=== PATIENT | female | born 1980 | race Caucasian/White ===

== ENCOUNTER 2016-11-17 14:07 | Emergency (ER) | payer MEDICAID ==
[2016-11-17 14:19] VITALS: TEMP 97.9
--- NOTE | 2016-11-17 15:03 | EDPHY ---
H & P Stated Complaint: MS exacerbation, sent by PCP. Time Seen by Provider: 11/17/16 15:01 HPI/ROS: CHIEF COMPLAINT: MS exacerbation HISTORY OF PRESENT ILLNESS: The patient is a 36 year old female with history of remitting relapsing multiple sclerosis, who was sent here by her neurologist, Wei FRANCOIS, for concern about possible MS exacerbation. On 11/14, the patient went to go get her bus pass from a place she has been multiple times, but was suddenly unable to remember how to get there. She felt disoriented and off balance. These symptoms lasted for a few hours. She continued to feel disoriented with lapses in memory the following day, 2 days ago. Yesterday she stayed home and just did housework. She noticed an increase in falls and states she usually falls due to weakness in her left leg. Today, she went to her neurologist because she felt she was "blacking out" again. She has noticed visual changes including double vision and headache for which she has been taking Maxalt. Patient additionally states she has felt chilled lately and notes intermittent diarrhea. She denies any urinary complaints. She has no history of cardiac issues. No fever. No chest pain, no shortness of breath, no vomiting. No cough or cold symptoms. No change in her medications recently. No head trauma. REVIEW OF SYSTEMS: Aside from elements discussed in the HPI, a comprehensive 10-point review of systems was reviewed and is negative. PAST MEDICAL HISTORY: RRMS, endometriosis, migraines, TBIs, PTSD/anxiety, Depression. SOCIAL HISTORY: Occasional alcohol. Uses a vape pen. VITAL SIGNS: Reviewed by me GENERAL: Well-developed, well-nourished, teary eyed, but resting comfortably in no respiratory distress. HEENT: Atraumatic. Eyes: No icterus, no injection. EOMI. JOSE. Mouth: moist mucous membranes. No erythema or lesions. Neck: supple with no adenopathy. LUNGS: Clear to auscultation bilaterally, no wheezes, rhonchi or rales. CARDIAC: Regular rate and rhythm, no rubs, murmurs or gallops. ABDOMEN: Soft, nontender, nondistended, bowel sounds normal. BACK: Mild left CVA tenderness. EXTREMITIES: No trauma. No edema. Range of motion is normal throughout. NEURO: Alert and oriented, grossly nonfocal. Slighty unsteady gait. SKIN: Warm and dry, no rash. PSYCHIATRIC: Normal mentation, no agitation. Portions of this note were transcribed by a regional medical director. I personally performed a history, physical exam, medical decision making, and confirmed accuracy of information the transcribed note. Source: Patient - Personal History LMP (Females 10-55): Now Current Tetanus Diphtheria and Acellular Pertussis (TDAP): Yes Tetanus Vaccine Date: 2010 - Medical/Surgical History Hx Asthma: No Hx Chronic Respiratory Disease: No Hx Diabetes: No Hx Cardiac Disease: No Hx Renal Disease: No Hx Cirrhosis: No Hx Alcoholism: No Hx HIV/AIDS: No Hx Splenectomy or Spleen Trauma: No Other PMH: RRMS, endometriosis, migraines, TBIs. PTSD/anxiety - Social History Smoking Status: Former smoker Constitutional: Initial Vital Signs Temperature (C) 36.6 C 11/17/16 14:14 Heart Rate 85 11/17/16 14:14 Respiratory Rate 16 11/17/16 14:14 Blood Pressure 117/74 11/17/16 14:14 O2 Sat (%) 98 11/17/16 14:14 O2 Delivery Mode Room Air Allergies/Adverse Reactions: amitriptyline [Amitriptyline] Allergy (Unknown, Verified 10/22/15 11:14) amoxicillin [Amoxicillin] Allergy (Unknown, Verified 10/22/15 11:14) ibuprofen Allergy (Verified 10/22/15 11:14) metoclopramide HCl [From Reglan] Allergy (Verified 10/22/15 11:14) Home Medications: Medication Instructions Recorded Tramadol HCl [Ultram Er] 100 mg PO QID PRN #20 tab 11/08/10 Flexeril 03/21/11 traMADol [Ultram 50 mg (*)] 1 - 2 tab PO Q8 PRN #24 tab 05/06/14 Pregabalin [LYRICA] 07/19/14 Rizatriptan Benzoate [Maxalt] 07/19/14 Diclofenac Sodium 11/29/15 Polymyxin B Sulfate/Tmp [Polytrim 1 drops EACHEYE Q4 7 Days 12/02/15 Opht Drops] Avonex 08/01/16 Flexeril 08/01/16 LORAZEPAM 08/01/16 LORazepam [Ativan (*)] 1 mg PO BID #10 tab 08/01/16 Maxalt 08/01/16 Neurontin 08/01/16 Zofran 08/01/16 traZODone 08/01/16 predniSONE 60 mg PO DAILY 5 Days 11/17/16 Medical Decision Making - Diagnostics Imaging: MRI scan of the brain was obtained. I viewed the images independently on the PACS system. I discussed the results of the study with the radiologist, Dr. Santiago Impression: Stable, no acute changes since November 2015. Please see the full radiology report. ED Course/Re-evaluation: I reviewed the patient's past medical records. Her last MRI was done here on . 1520: I paged Wei Rush and PA at [facility], to consult on patient. UA was ordered. 1545: I spoke to Dr. Sharpe who suggests 1gm Solu-Medrol IV and to have patient continue 60mg PO daily for the next 4 days. Plan discussed with the patient at 4:00 p.m.. Patient is tearful, states that she is very concerned that there may be something new going on. She reports that from June until now she has frequent episodes where she can't move the left side of her body, she is falling to the left, and is having episodes of brain fog. 1840: I discussed MRI results with the patient. She agrees with plan to be discharged home with Prednisone. She received Dilaudid for her headache pain and requested Ativan for anxiety. Differential Diagnosis: Differential diagnoses for the patient's symptom complex was considered including but not limited to multiple sclerosis exacerbation, electrolyte abnormalities, infection, stroke, migraine. - Data Points Laboratory Results: Laboratory Results 11/17/16 16:30 11/17/16 16:30 11/17/16 11/17/16 11/17/16 16:30 16:30 16:30 WBC 5.39 10^3/uL 10^3/uL (3.80-9.50) RBC 3.97 10^6/uL L 10^6/uL (4.18-5.33) Hgb 11.5 g/dL L g/dL (12.6-16.3) Hct 35.3 % L % (38.0-47.0) MCV 88.9 fL fL (81.5-99.8) MCH 29.0 pg pg (27.9-34.1) MCHC 32.6 g/dL g/dL (32.4-36.7) RDW 15.0 % % (11.5-15.2) Plt Count 298 10^3/uL 10^3/uL (150-400) MPV 9.2 fL fL (8.7-11.7) Neut % (Auto) 42.6 % % (39.3-74.2) Lymph % (Auto) 47.5 % H % (15.0-45.0) [place] % (Auto) 7.4 % % (4.5-13.0) Eos % (Auto) 0.4 % L % (0.6-7.6) Baso % (Auto) 1.9 % H % (0.3-1.7) Nucleat RBC Rel Count 0.0 % % (0.0-0.2) Absolute Neuts (auto) 2.30 10^3/uL 10^3/uL (1.70-6.50) Absolute Lymphs (auto) 2.56 10^3/uL 10^3/uL (1.00-3.00) Absolute Monos (auto) 0.40 10^3/uL 10^3/uL (0.30-0.80) Absolute Eos (auto) 0.02 10^3/uL L 10^3/uL (0.03-0.40) Absolute Basos (auto) 0.10 10^3/uL 10^3/uL (0.02-0.10) Absolute Nucleated RBC 0.00 10^3/uL 10^3/uL (0-0.01) Immature Gran % 0.2 % % (0.0-1.1) Immature Gran # 0.01 10^3/uL 10^3/uL (0.00-0.10) Sodium 139 mEq/L mEq/L (134-144) Potassium 3.6 mEq/L mEq/L (3.5-5.2) Chloride 112 mEq/L H mEq/L (97-110) Carbon Dioxide 17 mEq/l L mEq/l (22-31) Anion Gap 10 mEq/L mEq/L (8-16) BUN 8 mg/dL mg/dL (7-23) Creatinine 0.9 mg/dL mg/dL (0.6-1.0) Estimated GFR > 60 Glucose 77 mg/dL mg/dL (70-100) Calcium 9.2 mg/dL mg/dL (8.5-10.4) Beta HCG, Qual NEGATIVE Urine Color Urine Appearance Urine pH Ur Specific [place] Urine Protein Urine Ketones Urine Blood Urine Nitrate Urine Bilirubin Urine Urobilinogen Ur Leukocyte Esterase Urine RBC Urine WBC Ur Epithelial Cells Urine Glucose Ethyl Alcohol < 10 mg/dL mg/dL (0-10) 11/17/16 16:20 WBC RBC Hgb Hct MCV MCH MCHC RDW Plt Count MPV Neut % (Auto) Lymph % (Auto) [place] % (Auto) Eos % (Auto) Baso % (Auto) Nucleat RBC Rel Count Absolute Neuts (auto) Absolute Lymphs (auto) Absolute Monos (auto) Absolute Eos (auto) Absolute Basos (auto) Absolute Nucleated RBC Immature Gran % Immature Gran # Sodium Potassium Chloride Carbon Dioxide Anion Gap BUN Creatinine Estimated GFR Glucose Calcium Beta HCG, Qual Urine Color COLORLESS Urine Appearance CLEAR Urine pH 6.0 (5.0-7.5) Ur Specific [place] 1.004 (1.002-1.030) Urine Protein NEGATIVE (NEGATIVE) Urine Ketones NEGATIVE (NEGATIVE) Urine Blood NEGATIVE (NEGATIVE) Urine Nitrate NEGATIVE (NEGATIVE) Urine Bilirubin NEGATIVE (NEGATIVE) Urine Urobilinogen NEGATIVE EU EU (0.2-1.0) Ur Leukocyte Esterase NEGATIVE (NEGATIVE) Urine RBC NONE SEEN /hpf /hpf (0-3) Urine WBC 1-3 /hpf /hpf (0-3) Ur Epithelial Cells TRACE /lpf /lpf (NONE-1+) Urine Glucose NEGATIVE (NEGATIVE) Ethyl Alcohol Medications Given: Discontinued Medications Hydromorphone HCl (Dilaudid) 1 mg IVP EDNOW ONE Stop: 11/17/16 16:02 Last Admin: 11/17/16 17:10 Dose: 1 mg Hydromorphone HCl (Dilaudid) 1 mg IVP EDNOW ONE Stop: 11/17/16 19:15 Last Admin: 11/17/16 19:17 Dose: 1 mg Sodium Chloride (Ns) 1,000 mls @ 0 mls/hr IV ONCE ONE PRN Reason: Wide Open Stop: 11/17/16 16:01 Last Admin: 11/17/16 17:09 Dose: 1,000 mls Lorazepam (Ativan 1 Mg Prepack#4) 1 btl TAKEHOME EDNOW ONE Stop: 11/17/16 19:55 Last Admin: 11/17/16 20:01 Dose: 1 btl Methylprednisolone Sodium Succinate (Solu-Medrol) 1,000 mg IVP EDNOW ONE Stop: 11/17/16 15:53 Last Admin: 11/17/16 17:10 Dose: 1,000 mg Departure - Departure Disposition: Home, Routine, Self-Care Clinical Impression: Exacerbation of multiple sclerosis Condition: Good Instructions: Prednisone (By mouth) Additional Instructions: Take 60mg of Prednisone for the next 4 days. Followup with Wei Rush by the end of this week for reevaluation. Referrals: Jose Rush PA [Primary Care Provider] - 5-7 days, if not improved Prescriptions: predniSONE 60 mg PO DAILY 5 Days Report Scribed for: Ivett Henry Report Scribed by: Jeni Miranda Date of Report: 11/17/16 Time of Report: 15:21
[2016-11-17] MEDS ORDERED: methylPREDNISolone SOD SUCC 125 MG/2 ML VIAL IVP ONE (15:52)
[2016-11-17] MEDS ORDERED: NS 1,000 ML IV ONE (16:00)
[2016-11-17] MEDS ORDERED: HYDROmorphONE/DILAUDID 1 MG/ML SYR IVP ONE ×2 (16:01→19:14)
[2016-11-17 16:41] LABS: COLOR COLORLESS; LEUKOCYTE ESTERASE,URINE NEGATIVE (NEGATIVE); NITRITE,URINE NEGATIVE (NEGATIVE)
[2016-11-17] MEDS ORDERED: HYDROmorphONE/DILAUDID 1 MG/ML SYR ONE (16:53)
[2016-11-17] MEDS ORDERED: methylPREDNISolone SOD SUCC 125 MG/2 ML VIAL ONE (16:57)
[2016-11-17 16:59] LABS: % IMMATURE GRANULYOCYTES 0.2 % (0.0-1.1); ABSOLUTE IMMATURE GRANULOCYTES 0.01 10^3/uL (0.00-0.10); ADD DIFF? NO; ADD MORPH? NO; ADD SCAN? NO; ATYPICAL LYMPHOCYTE FLAG 20 (0-99); FRAGMENT RBC FLAG 0 (0-99); HEMATOCRIT 35.3 % (38.0-47.0); HEMOGLOBIN 11.5 g/dL (12.6-16.3); LEFT SHIFT FLG 0 (0-99); LIPEMIA HEMOLYSIS FLAG 80 (0-99); MEAN CELL HEMOGLOBIN CONCENTR. 32.6 g/dL (32.4-36.7); MEAN CELL VOLUME 88.9 fL (81.5-99.8); MEAN PLATELET VOLUME 9.2 fL (8.7-11.7); PLATELET CLUMPS FLAG 20 (0-99); PLATELET COUNT 298 10^3/uL (150-400); RED BLOOD CELL COUNT 3.97 10^6/uL (4.18-5.33)
[2016-11-17 17:16] LABS: RBC,URINE NONE SEEN /hpf (0-3)
[2016-11-17 17:17] LABS: ANION GAP 10 mEq/L (8-16); CALCIUM 9.2 mg/dL (8.5-10.4); CARBON DIOXIDE 17 mEq/l (22-31); CHLORIDE 112 mEq/L (97-110); CREATININE 0.9 mg/dL (0.6-1.0); ETHANOL SERUM < 10 mg/dL (0-10); GLOMERULAR FILTRATION RATE > 60; GLUCOSE 77 mg/dL (70-100); POTASSIUM 3.6 mEq/L (3.5-5.2); SODIUM 139 mEq/L (134-144)
[2016-11-17] MEDS ORDERED: GADOBUTROL 10 ML VIAL IVP ONE (17:45)
[2016-11-17] MEDS ORDERED: LORAZEPAM 1 MG PREPACK#4 BTL TAKEHOME ONE ×2 (19:54→19:55)
[2016-11-17 20:01] VITALS: BP 116/75; PULSE 71; RESP 14; O2SAT 95
== END 2016-11-17 19:59 | disposition home or self-care (01) ==
DX: G35 Multiple sclerosis (principal); Z87.891 Personal history of nicotine dependence
CPT/HCPCS: 96374; A9585; G0480; J1170

== ENCOUNTER 2017-03-04 19:56 | Emergency (ER) | payer MEDICAID ==
[2017-03-04] MEDS ORDERED: fentaNYL 100 MCG/2 ML INJ IVP ONE ×2 (20:30→21:51)
--- NOTE | 2017-03-04 20:34 | EDPHY ---
H & P Stated Complaint: abd pain; endometriosis previously dx'd, was supposed to have US - Personal History LMP (Females 10-55): 1-7 Days Ago Current Tetanus/Diphtheria Vaccine: Yes Tetanus Vaccine Date: 2010 - Medical/Surgical History Hx Asthma: No Hx Chronic Respiratory Disease: No Hx Diabetes: No Hx Cardiac Disease: No Hx Renal Disease: No Hx Cirrhosis: No Hx Alcoholism: No Hx HIV/AIDS: No Hx Splenectomy or Spleen Trauma: No Other PMH: PMHx: RRMS, endometriosis, migraines, TBIs. PTSD/anxiety, night terrors, ovarian cyst. PSHx: 2 laproscopies for endometriosis, ovarian cyst removal (R) - Social History Smoking Status: Former smoker Time Seen by Provider: 03/04/17 20:16 HPI/ROS: Chief Complaint: Abdominal pain HPI: 36-year-old woman with a history of endometriosis and ovarian cysts presenting with waxing and waning left lower abdominal pain for several months. Patient states that she was seen and was supple 7 ultrasound a month ago but had to go out of town to a family emergency. Pain was worse last night. It waxes and wanes but then goes completely away. Last menstrual period was a week ago was normal. She has not had any urinary urgency frequency. Has a subjective fevers and chills but has not taken her temperature at home. Some nausea with no vomiting. No abnormal vaginal discharge. No diarrhea or constipation. ROS: 10 point Review of Systems is negative except as noted in the HPI. PMH: Multiple sclerosis, endometriosis, ovarian cysts Social History: vapes nicotine, occasional alcohol, no recreational drug use Family History: non-contributory Physical Exam: Gen: Awake, Alert, No Distress HEENT: Nose: no rhinorrhea Eyes: PERRLA, EOMI Mouth: Moist mucosa Neck: Supple, no JVD Chest: nontender, lungs clear to auscultation Heart: S1, S2 normal, no murmur Abd: Soft, moderate left adnexal tenderness without fullness or mass, no guarding Back: no CVA tenderness, no midline tenderness Ext: no edema, non-tender Skin: no rash Neuro: CN II-XII intact, Sensation grossly intact, Strength 5/5 in bilateral upper and lower extremities (Jaime Washington) Constitutional: Initial Vital Signs Temperature (C) 36.9 C 03/04/17 20:08 Heart Rate 102 H 03/04/17 20:08 Respiratory Rate 22 H 03/04/17 20:08 Blood Pressure 109/75 03/04/17 20:08 O2 Sat (%) 97 03/04/17 20:08 O2 Delivery Mode Room Air Allergies/Adverse Reactions: amitriptyline [Amitriptyline] Allergy (Unknown, Verified 10/22/15 11:14) amoxicillin [Amoxicillin] Allergy (Unknown, Verified 10/22/15 11:14) glatiramer (copolymer 1) [From Copaxone] Allergy (Verified 03/04/17 20:01) ibuprofen Allergy (Verified 10/22/15 11:14) metoclopramide HCl [From Reglan] Allergy (Verified 10/22/15 11:14) Home Medications: Medication Instructions Recorded traMADol [Ultram 50 mg (*)] 1 - 2 tab PO Q8 PRN #24 tab 05/06/14 Rizatriptan Benzoate [Maxalt] 07/19/14 LORAZEPAM 08/01/16 Neurontin 08/01/16 Zofran 08/01/16 predniSONE 60 mg PO DAILY 5 Days 11/17/16 Botox 03/04/17 Prazosin HCl 03/04/17 Skelaxin 03/04/17 Topamax 03/04/17 busPIRone 03/04/17 Medical Decision Making - Diagnostics Imaging Results: Imaging Impressions Pelvic/Renal Ultrasound 03/04/17 21:23 Impression: Hemorrhagic cyst left ovary. Results discussed with Dr. Grace at 10:57 PM ED Course/Re-evaluation: Patient signed out to Dr. Peterson pending results of pelvic ultrasound. Patient is not . She has a normal UA. She has a very benign exam. Certainly does not have an acute surgical abdomen per my examination. (Jaime Washington) 2300: Notified to me by Dr. Montague with Radiology this patient's ultrasound shows a left hemorrhagic cyst. No significant free fluid. Good blood flow to both ovaries. Involuting left hemorrhagic cyst. I have updated the patient she is comfortable going home. She understands she has an ovarian cyst. She understands return emergency room if develops worsening abdominal pain, fever, vomiting. She is comfortable this plan. (Yohannes Peterson) - Data Points Laboratory Results: Laboratory Results 03/04/17 20:35 03/04/17 20:35 03/04/17 03/04/17 03/04/17 20:35 20:35 20:35 WBC 9.41 10^3/uL 10^3/uL (3.80-9.50) RBC 4.26 10^6/uL 10^6/uL (4.18-5.33) Hgb 11.9 g/dL L g/dL (12.6-16.3) Hct 36.7 % L % (38.0-47.0) MCV 86.2 fL fL (81.5-99.8) MCH 27.9 pg pg (27.9-34.1) MCHC 32.4 g/dL g/dL (32.4-36.7) RDW 14.3 % % (11.5-15.2) Plt Count 288 10^3/uL 10^3/uL (150-400) MPV 9.1 fL fL (8.7-11.7) Neut % (Auto) 66.4 % % (39.3-74.2) Lymph % (Auto) 24.7 % % (15.0-45.0) [place] % (Auto) 7.5 % % (4.5-13.0) Eos % (Auto) 0.1 % L % (0.6-7.6) Baso % (Auto) 1.0 % % (0.3-1.7) Nucleat RBC Rel Count 0.0 % % (0.0-0.2) Absolute Neuts (auto) 6.25 10^3/uL 10^3/uL (1.70-6.50) Absolute Lymphs (auto) 2.32 10^3/uL 10^3/uL (1.00-3.00) Absolute Monos (auto) 0.71 10^3/uL 10^3/uL (0.30-0.80) Absolute Eos (auto) 0.01 10^3/uL L 10^3/uL (0.03-0.40) Absolute Basos (auto) 0.09 10^3/uL 10^3/uL (0.02-0.10) Absolute Nucleated RBC 0.00 10^3/uL 10^3/uL (0-0.01) Immature Gran % 0.3 % % (0.0-1.1) Immature Gran # 0.03 10^3/uL 10^3/uL (0.00-0.10) Sodium 137 mEq/L mEq/L (134-144) Potassium 3.4 mEq/L L mEq/L (3.5-5.2) Chloride 109 mEq/L mEq/L (97-110) Carbon Dioxide 15 mEq/l L mEq/l (22-31) Anion Gap 13 mEq/L mEq/L (8-16) BUN 8 mg/dL mg/dL (7-23) Creatinine 1.1 mg/dL H mg/dL (0.6-1.0) Estimated GFR 56 Glucose 92 mg/dL mg/dL (70-100) Calcium 9.6 mg/dL mg/dL (8.5-10.4) Beta HCG, Qual NEGATIVE Urine Color Urine Appearance Urine pH Ur Specific [place] Urine Protein Urine Ketones Urine Blood Urine Nitrate Urine Bilirubin Urine Urobilinogen Ur Leukocyte Esterase Urine Glucose 03/04/17 20:28 WBC RBC Hgb Hct MCV MCH MCHC RDW Plt Count MPV Neut % (Auto) Lymph % (Auto) [place] % (Auto) Eos % (Auto) Baso % (Auto) Nucleat RBC Rel Count Absolute Neuts (auto) Absolute Lymphs (auto) Absolute Monos (auto) Absolute Eos (auto) Absolute Basos (auto) Absolute Nucleated RBC Immature Gran % Immature Gran # Sodium Potassium Chloride Carbon Dioxide Anion Gap BUN Creatinine Estimated GFR Glucose Calcium Beta HCG, Qual Urine Color YELLOW Urine Appearance CLEAR Urine pH 5.0 (5.0-7.5) Ur Specific [place] 1.026 (1.002-1.030) Urine Protein NEGATIVE (NEGATIVE) Urine Ketones NEGATIVE (NEGATIVE) Urine Blood NEGATIVE (NEGATIVE) Urine Nitrate NEGATIVE (NEGATIVE) Urine Bilirubin NEGATIVE (NEGATIVE) Urine Urobilinogen NEGATIVE EU EU (0.2-1.0) Ur Leukocyte Esterase NEGATIVE (NEGATIVE) Urine Glucose NEGATIVE (NEGATIVE) Medications Given: Discontinued Medications Fentanyl (Sublimaze) 50 mcg IVP EDNOW ONE Stop: 03/04/17 20:31 Last Admin: 03/04/17 20:51 Dose: 50 mcg Fentanyl (Sublimaze) 50 mcg IVP EDNOW ONE Stop: 03/04/17 21:52 Last Admin: 03/04/17 21:51 Dose: 50 mcg Ondansetron HCl (Zofran) 4 mg IVP EDNOW ONE Stop: 03/04/17 21:24 Last Admin: 03/04/17 21:38 Dose: 4 mg Departure - Departure Disposition: Home, Routine, Self-Care Clinical Impression: Ovarian cyst Condition: Good Instructions: Ovarian Cyst (ED), Ruptured Ovarian Cyst (ED) Additional Instructions: 1. Stay well-hydrated drink lots of fluids. 2. Return emergency room if develops worsening symptoms questions or concerns. 3. Please follow up with her OBGYN. Referrals: Ni Cazares MD [Primary Care Provider] - As per Instructions
[2017-03-04 20:40] LABS: % IMMATURE GRANULYOCYTES 0.3 % (0.0-1.1); ABSOLUTE IMMATURE GRANULOCYTES 0.03 10^3/uL (0.00-0.10); ADD DIFF? NO; ADD MORPH? NO; ADD SCAN? NO; ATYPICAL LYMPHOCYTE FLAG 0 (0-99); FRAGMENT RBC FLAG 0 (0-99); HEMATOCRIT 36.7 % (38.0-47.0); HEMOGLOBIN 11.9 g/dL (12.6-16.3); LEFT SHIFT FLG 0 (0-99); LIPEMIA HEMOLYSIS FLAG 80 (0-99); MEAN CELL HEMOGLOBIN 27.9 pg (27.9-34.1); MEAN CELL HEMOGLOBIN CONCENTR. 32.4 g/dL (32.4-36.7); MEAN CELL VOLUME 86.2 fL (81.5-99.8); MEAN PLATELET VOLUME 9.1 fL (8.7-11.7); PLATELET CLUMPS FLAG 0 (0-99); PLATELET COUNT 288 10^3/uL (150-400); RED BLOOD CELL COUNT 4.26 10^6/uL (4.18-5.33); RED CELL DISTRIBUTION WIDTH 14.3 % (11.5-15.2)
[2017-03-04 20:42] LABS: COLOR YELLOW; LEUKOCYTE ESTERASE,URINE NEGATIVE (NEGATIVE); NITRITE,URINE NEGATIVE (NEGATIVE)
[2017-03-04 20:57] LABS: ANION GAP 13 mEq/L (8-16); CALCIUM 9.6 mg/dL (8.5-10.4); CARBON DIOXIDE 15 mEq/l (22-31); CHLORIDE 109 mEq/L (97-110); CREATININE 1.1 mg/dL (0.6-1.0); GLOMERULAR FILTRATION RATE 56; GLUCOSE 92 mg/dL (70-100); POTASSIUM 3.4 mEq/L (3.5-5.2); SODIUM 137 mEq/L (134-144)
[2017-03-04] MEDS ORDERED: ONDANSETRON 4 MG/2 ML VIAL IVP ONE (21:23)
[2017-03-04] MEDS ORDERED: fentaNYL 100 MCG/2 ML INJ ONE (21:42)
[2017-03-04 22:51] VITALS: RESP 16
[2017-03-04 23:14] VITALS: BP 106/64; PULSE 90; TEMP 98.2; O2SAT 94
== END 2017-03-04 23:12 | disposition home or self-care (01) ==
DX: N83.202 Unspecified ovarian cyst, left side (principal); Z87.891 Personal history of nicotine dependence
CPT/HCPCS: 96374; J2405; J3010

== ENCOUNTER 2017-07-03 17:29 | Emergency (ER) | payer MEDICAID ==
[2017-07-03 17:37] VITALS: TEMP 98.4
--- NOTE | 2017-07-03 17:45 | EDPHY ---
H & P Stated Complaint: nausea x [address] cazares rx zofran /wants stronger med HPI/ROS: HPI CHIEF COMPLAINT: Nausea, vomiting, left breast pain. HISTORY OF PRESENT ILLNESS: Patient very pleasant 36-year-old female she has significant past medical history for cervical cancer, MS, in a left breast lump that she noticed a few months ago. She is due to have an ultrasound and mammogram of this. She is not scheduled the actual appointment yet. She was here at the [facility] visiting her neurologist she has MS. She is due to start a MS medication by infusion. She is due to have blood work today. She has been having significant left breast pain sharp stabbing in nature. Anterior left middle breast. Sometimes it radiates to her back. She denies shortness of breath. Denies chest pressure. She endorses nausea vomiting with this. She states that she was prescribed Zofran however this is not really helping she decided come the emergency room for further stronger medication instead of Zofran. Past Medical History: Cervical cancer, MS Past Surgical History: Denies recent surgery Social History: Denies daily use drugs alcohol tobacco products. Family History: Noncontributory. ROS REVIEW OF SYSTEMS: A comprehensive 10 point review of systems is otherwise negative aside from elements mentioned in the history of present illness. Exam Constitutional tearful, anxious, nauseous, triage nursing summary reviewed, vital signs reviewed, awake/alert. Eyes normal conjunctivae and sclera, EOMI, PERRLA. HENT normal inspection, atraumatic, moist mucus membranes, no epistaxis, neck supple/ no meningismus, no raccoon eyes. Respiratory clear to auscultation bilaterally, normal breath sounds, no respiratory distress, no wheezing. Cardiovascular left breast: Abstractor in room. Analisa POSADAS. Normal anatomy at the left breast. Patient would not allow me to palpated. No appreciable signs of infection or drainage from the nipple. No redness. No significant swelling noted. rate normal, regular rhythm, no murmur, no edema, distal pulses normal. Gastrointestinal soft, non-tender, no rebound, no guarding, normal bowel sounds, no distension, no pulsatile mass. Genitourinary no CVA tenderness. Musculoskeletal no midline vertebral tenderness, full range of motion, no calf swelling, no tenderness of extremities, no meningismus, good pulses, neurovascularly intact. Skin pink, warm, & dry, no rash, skin atraumatic. Neurologic awake, alert and oriented x 3, AAOx3, moves all 4 extremities equally, motor intact, sensory intact, CN II-XII intact, normal cerebellar, normal vision, normal speech. Psychiatric normal mood/affect. Heme/Lymph/Immune no lymphadenopathy. Differential Diagnosis: Includes but is not limited to in a particular order acute anxiety, try disturbance, dehydration, infection, breast mass, breast cancer Medical Decision Making: Plan for this patient IV establishment with IV fluids , Dilaudid for pain control, Zofran Phenergan for nausea. Check basic blood work. Re-evaluate. Re-evaluation: 193: Patient is feeling much better after IV Phenergan IV Dilaudid. She is requesting be discharged home. She would like a prescription for Phenergan and [place]. I will give her limited supply of pain medicine. She is due to have a breast cancer evaluation mammogram next week. She does understand return emergency room if she develops any worsening symptoms includes worsening pain, vomiting, fever questions or concerns she understands. Source: Patient - Personal History LMP (Females 10-55): 1-7 Days Ago Current Tetanus/Diphtheria Vaccine: Yes Tetanus Vaccine Date: 2010 - Medical/Surgical History Hx Asthma: No Hx Chronic Respiratory Disease: No Hx Diabetes: No Hx Cardiac Disease: No Hx Renal Disease: No Hx Cirrhosis: No Hx Alcoholism: No Hx HIV/AIDS: No Hx Splenectomy or Spleen Trauma: No Other PMH: PMHx: RRMS, endometriosis, migraines, TBIs. PTSD/anxiety, night terrors, ovarian cyst. PSHx: 2 laproscopies for endometriosis, ovarian cyst removal (R) - Social History Smoking Status: Former smoker Constitutional: Initial Vital Signs Temperature (C) 36.9 C 07/03/17 17:34 Heart Rate 78 07/03/17 17:34 Respiratory Rate 18 07/03/17 17:34 Blood Pressure 110/76 07/03/17 17:34 O2 Sat (%) 100 07/03/17 17:34 O2 Delivery Mode Room Air Allergies/Adverse Reactions: amitriptyline [Amitriptyline] Allergy (Unknown, Verified 07/03/17 17:33) amoxicillin [Amoxicillin] Allergy (Unknown, Verified 07/03/17 17:33) glatiramer (copolymer 1) [From Copaxone] Allergy (Verified 07/03/17 17:33) ibuprofen Allergy (Verified 07/03/17 17:33) metoclopramide HCl [From Reglan] Allergy (Verified 07/03/17 17:33) Home Medications: Medication Instructions Recorded traMADol [Ultram 50 mg (*)] 1 - 2 tab PO Q8 PRN #24 tab 05/06/14 Rizatriptan Benzoate [Maxalt] 07/19/14 LORAZEPAM 08/01/16 Neurontin 08/01/16 Zofran 08/01/16 predniSONE 60 mg PO DAILY 5 Days tab 11/17/16 Botox 03/04/17 Prazosin HCl 03/04/17 Skelaxin 03/04/17 Topamax 03/04/17 Hydrocodone/APAP 5325 [[place] 1 - 2 tab PO Q4H PRN #10 tab 07/03/17 5325] Promethazine HCl 25 mg PO BID #10 tablet 07/03/17 Medical Decision Making - Data Points Laboratory Results: Laboratory Results 07/03/17 18:00 07/03/17 18:00 07/03/17 07/03/17 07/03/17 18:00 18:00 18:00 WBC 6.09 10^3/uL 10^3/uL (3.80-9.50) RBC 4.59 10^6/uL 10^6/uL (4.18-5.33) Hgb 13.9 g/dL g/dL (12.6-16.3) Hct 41.5 % % (38.0-47.0) MCV 90.4 fL fL (81.5-99.8) MCH 30.3 pg pg (27.9-34.1) MCHC 33.5 g/dL g/dL (32.4-36.7) RDW 14.2 % % (11.5-15.2) Plt Count 310 10^3/uL 10^3/uL (150-400) MPV 9.0 fL fL (8.7-11.7) Neut % (Auto) 46.4 % % (39.3-74.2) Lymph % (Auto) 44.2 % % (15.0-45.0) [place] % (Auto) 5.7 % % (4.5-13.0) Eos % (Auto) 1.0 % % (0.6-7.6) Baso % (Auto) 2.5 % H % (0.3-1.7) Nucleat RBC Rel Count 0.0 % % (0.0-0.2) Absolute Neuts (auto) 2.83 10^3/uL 10^3/uL (1.70-6.50) Absolute Lymphs (auto) 2.69 10^3/uL 10^3/uL (1.00-3.00) Absolute Monos (auto) 0.35 10^3/uL 10^3/uL (0.30-0.80) Absolute Eos (auto) 0.06 10^3/uL 10^3/uL (0.03-0.40) Absolute Basos (auto) 0.15 10^3/uL H 10^3/uL (0.02-0.10) Absolute Nucleated RBC 0.00 10^3/uL 10^3/uL (0-0.01) Immature Gran % 0.2 % % (0.0-1.1) Immature Gran # 0.01 10^3/uL 10^3/uL (0.00-0.10) Sodium 143 mEq/L mEq/L (134-144) Potassium 3.7 mEq/L mEq/L (3.5-5.2) Chloride 107 mEq/L mEq/L (97-110) Carbon Dioxide 20 mEq/l L mEq/l (22-31) Anion Gap 16 mEq/L mEq/L (8-16) BUN 4 mg/dL L mg/dL (7-23) Creatinine 1.0 mg/dL mg/dL (0.6-1.0) Estimated GFR > 60 Glucose 82 mg/dL mg/dL (70-100) Calcium 9.4 mg/dL mg/dL (8.5-10.4) Total Bilirubin 0.3 mg/dL D mg/dL (0.1-1.4) Conjugated Bilirubin 0.2 mg/dL mg/dL (0.0-0.5) Unconjugated Bilirubin 0.1 mg/dL mg/dL (0.0-1.1) AST 25 IU/L IU/L (14-46) ALT 21 IU/L IU/L (9-52) Alkaline Phosphatase 116 IU/L IU/L (38-126) Total Protein 8.1 g/dL g/dL (6.3-8.2) Albumin 4.1 g/dL g/dL (3.5-5.0) Lipase 281 IU/L IU/L (23-300) Beta HCG, Qual NEGATIVE Medications Given: Discontinued Medications Hydromorphone HCl (Dilaudid) 1 mg IVP EDNOW ONE Stop: 07/03/17 18:03 Last Admin: 07/03/17 18:14 Dose: 1 mg Sodium Chloride (Ns) 1,000 mls @ 0 mls/hr IV EDNOW ONE; Wide Open PRN Reason: Protocol Stop: 07/03/17 18:03 Last Admin: 07/03/17 18:08 Dose: 1,000 mls Promethazine HCl (Phenergan) 12.5 mg IVP EDNOW ONE Stop: 07/03/17 18:03 Last Admin: 07/03/17 18:13 Dose: 12.5 mg Departure - Departure Disposition: Home, Routine, Self-Care Clinical Impression: Breast pain Condition: Good Instructions: Chest Wall Pain (ED) Additional Instructions: 1. Return emergency room if develops worsening symptoms includes worsening pain vomiting fever. Referrals: Ni Cazares MD [Primary Care Provider] - As per Instructions Prescriptions: Hydrocodone/APAP 5/325 [[place] 5/325] 1 - 2 tab PO Q4H PRN #10 tab PRN Reason: Pain, Moderate Promethazine HCl 25 mg PO BID #10 tablet
[2017-07-03] MEDS ORDERED: NS 1,000 ML IV ONE (18:02)
[2017-07-03] MEDS ORDERED: PROMETHAZINE HCL 25 MG/ML INJ IVP ONE (18:02)
[2017-07-03] MEDS ORDERED: HYDROmorphONE/DILAUDID 1 MG/ML INJ IVP ONE (18:02)
[2017-07-03 18:09] LABS: % IMMATURE GRANULYOCYTES 0.2 % (0.0-1.1); ABSOLUTE IMMATURE GRANULOCYTES 0.01 10^3/uL (0.00-0.10); ADD DIFF? NO; ADD MORPH? NO; ADD SCAN? NO; ATYPICAL LYMPHOCYTE FLAG 10 (0-99); FRAGMENT RBC FLAG 0 (0-99); HEMATOCRIT 41.5 % (38.0-47.0); HEMOGLOBIN 13.9 g/dL (12.6-16.3); LEFT SHIFT FLG 0 (0-99); LIPEMIA HEMOLYSIS FLAG 80 (0-99); MEAN CELL HEMOGLOBIN 30.3 pg (27.9-34.1); MEAN CELL HEMOGLOBIN CONCENTR. 33.5 g/dL (32.4-36.7); MEAN CELL VOLUME 90.4 fL (81.5-99.8); PLATELET CLUMPS FLAG 0 (0-99); PLATELET COUNT 310 10^3/uL (150-400); RED BLOOD CELL COUNT 4.59 10^6/uL (4.18-5.33); RED CELL DISTRIBUTION WIDTH 14.2 % (11.5-15.2)
[2017-07-03 18:31] LABS: ALANINE AMINOTRANSFERASE 21 IU/L (9-52); ALBUMIN 4.1 g/dL (3.5-5.0); ALKALINE PHOSPHATASE 116 IU/L (38-126); ANION GAP 16 mEq/L (8-16); ASPARTATE AMINOTRANSFERASE 25 IU/L (14-46); BILIRUBIN,TOTAL 0.3 mg/dL (0.1-1.4); BILIRUBIN-CONJUGATED 0.2 mg/dL (0.0-0.5); BILIRUBIN-UNCONJUGATED 0.1 mg/dL (0.0-1.1); CALCIUM 9.4 mg/dL (8.5-10.4); CARBON DIOXIDE 20 mEq/l (22-31); CHLORIDE 107 mEq/L (97-110); GLOMERULAR FILTRATION RATE > 60; GLUCOSE 82 mg/dL (70-100); POTASSIUM 3.7 mEq/L (3.5-5.2); SODIUM 143 mEq/L (134-144); TOTAL PROTEIN 8.1 g/dL (6.3-8.2)
[2017-07-03 19:34] VITALS: BP 108/76; PULSE 66; RESP 14; O2SAT 96
[2017-07-03] MEDS ORDERED: HYDROCOD/APAP 5/325 PREPACK#6 BTL TAKEHOME ONE (19:57)
== END 2017-07-03 20:06 | disposition home or self-care (01) ==
DX: N64.4 Mastodynia (principal); E86.9 Volume depletion, unspecified; Z85.41 Personal history of malignant neoplasm of cervix uteri; Z87.891 Personal history of nicotine dependence
CPT/HCPCS: 96374; J1170; J2550

== ENCOUNTER → 2017-07-08 | Outpatient (CLI) | payer MEDICAID | LOC: FIMAGING 07:07 | PROVIDERS: ATTEND Physician Assistant Medical | DX: G35 Multiple sclerosis (principal); M50.322 Other cervical disc degeneration at C5-C6 level; M48.02 Spinal stenosis, cervical region; M46.92 Unspecified inflammatory spondylopathy, cervical region; M51.26 Other intervertebral disc displacement, lumbar region; M48.062 Spinal stenosis, lumbar region with neurogenic claudication ==

== ENCOUNTER 2017-08-03 12:54 | Emergency (ER) | payer MEDICAID ==
[2017-08-03 13:00] VITALS: BP 101/82; PULSE 96; RESP 18; TEMP 98.4; O2SAT 97
== END 2017-08-03 14:40 | disposition left against medical advice (07) ==
DX: Z53.21 Procedure and treatment not carried out due to patient leaving prior to being seen by health care provider (principal)

== ENCOUNTER 2018-10-09 23:30 | Emergency (ER) | payer MEDICAID ==
--- NOTE | 2018-10-09 23:41 | EDPHY ---
H & P Time Seen by Provider: 10/09/18 23:41 HPI/ROS: HPI CHIEF COMPLAINT: Edible marijuana, sleepiness, possible syncope. HISTORY OF PRESENT ILLNESS: This is a 38-year-old female she has MS, additionally history of cervical cancer she [facility] 911 was called there tonight for possible syncope. She reports she took 2 edible marijuana and then took her nighttime sleep medication, she became very tired and sleepy. She reports to me all she wants to do is sleep. She also had alcohol earlier tonight. She denies syncope, denies chest pain, denies shortness of breath. Brought to the emergency room as she may have had a "syncopal episode/Sleepines " and was excessively sleepy at the fpc. Past Medical History: Significant medical history for cervical cancer, MS. Past Surgical History: Denies recent surgery Social History: Denies drugs alcohol tobacco. Family History: Noncontributory ROS REVIEW OF SYSTEMS: 10 Systems were reviewed and negative with the exception of the elements mentioned in the history of present illness. Exam Constitutional sleepy, nontoxic triage nursing summary reviewed, vital signs reviewed, awake/alert. Vital signs stable Eyes normal conjunctivae and sclera, EOMI, PERRLA. HENT normal inspection, atraumatic, moist mucus membranes, no epistaxis, neck supple/ no meningismus, no raccoon eyes. Respiratory clear to auscultation bilaterally, normal breath sounds, no respiratory distress, no wheezing. Cardiovascular rate normal, regular rhythm, no murmur, no edema, distal pulses normal. Gastrointestinal soft, non-tender, no rebound, no guarding, normal bowel sounds, no distension, no pulsatile mass. Genitourinary no CVA tenderness. Musculoskeletal no midline vertebral tenderness, full range of motion, no calf swelling, no tenderness of extremities, no meningismus, good pulses, neurovascularly intact. Skin pink, warm, & dry, no rash, skin atraumatic. Neurologic awake, alert and oriented x 3, AAOx3, moves all 4 extremities equally, motor intact, sensory intact, CN II-XII intact, normal cerebellar, normal vision, normal speech. Psychiatric normal mood/affect. Heme/Lymph/Immune no lymphadenopathy. Differential Diagnosis: Includes but is not limited to in a particular order edible marijuana intoxication, polysubstance abuse, syncope, dehydration, electrolyte disturbance, cardiac arrhythmia Medical Decision Making: Plan for this patient IV establishment IV fluid bolus , basic blood work, EKG and monitor. Re-evaluation: EKG interpretation by me on record in [facility] system. Impression time of EKG 0016, sinus rhythm rate of 72 EKG performed due to possible syncope. This is unremarkable EKG. 0459: Patient re-evaluated this time resting comfortably no acute distress. The patient's EKG is unremarkable. The patient has been resting here throughout the night. She has no complaints. She ambulated well to the bathroom without any difficulty. Denies chest pain shortness of breath. No syncope here in the emergency room. Vital signs have been stable. I believed that she was excessively sleepy from her medications she took. She has been resting comfortably throughout the night in the ER without complaint. Given that she ambulated well she is alert and oriented, wide awake. I will allow her to be discharged from the emergency room. Return precautions discussed with her. Source: Patient, EMS - Personal History Tetanus Vaccine Date: 2010 - Medical/Surgical History Hx Asthma: No Hx Chronic Respiratory Disease: No Hx Diabetes: No Hx Cardiac Disease: No Hx Renal Disease: No Hx Cirrhosis: No Hx Alcoholism: No Hx HIV/AIDS: No Hx Splenectomy or Spleen Trauma: No Other PMH: PMHx: RRMS, endometriosis, migraines, TBIs. PTSD/anxiety, night terrors, ovarian cyst. PSHx: 2 laproscopies for endometriosis, ovarian cyst removal (R) - Social History Smoking Status: Former smoker Constitutional: Initial Vital Signs Temperature (C) 36.4 C 10/09/18 23:30 Heart Rate 95 10/09/18 23:30 Respiratory Rate 18 10/09/18 23:30 Blood Pressure 113/85 H 10/09/18 23:30 O2 Sat (%) 99 10/09/18 23:30 O2 Delivery Mode Room Air Allergies/Adverse Reactions: amitriptyline [Amitriptyline] Allergy (Unknown, Verified 10/09/18 23:46) amoxicillin [Amoxicillin] Allergy (Unknown, Verified 10/09/18 23:46) glatiramer (copolymer 1) [From Copaxone] Allergy (Verified 10/09/18 23:46) ibuprofen Allergy (Verified 10/09/18 23:46) metoclopramide HCl [From Reglan] Allergy (Verified 10/09/18 23:46) Home Medications: Medication Instructions Recorded traMADol [Ultram 50 mg (*)] 1 - 2 tab PO Q8 PRN #24 tab 05/06/14 Rizatriptan Benzoate [Maxalt] 07/19/14 LORAZEPAM 08/01/16 Neurontin 08/01/16 Zofran 08/01/16 predniSONE 60 mg PO DAILY 5 Days tab 11/17/16 Botox 03/04/17 Prazosin HCl 03/04/17 Skelaxin 03/04/17 Topamax 03/04/17 Hydrocodone/APAP 5/325 [[place] 1 - 2 tab PO Q4H PRN #10 tab 07/03/17 5/325] Promethazine HCl 25 mg PO BID #10 tablet 07/03/17 Medical Decision Making - Data Points Laboratory Results: Laboratory Results 10/09/18 23:36 10/09/18 23:36 Medications Given: Discontinued Medications Sodium Chloride (Ns) 1,000 mls @ 0 mls/hr IV ONCE ONE PRN Reason: Wide Open Stop: 10/09/18 23:48 Last Admin: 10/10/18 00:06 Dose: 1,000 mls Departure - Departure Disposition: Home, Routine, Self-Care Clinical Impression: Syncope Qualifiers: Syncope type: unspecified Qualified Code(s): R55 - Syncope and collapse Condition: Good Instructions: Syncope (ED) Additional Instructions: 1. Drink lots of fluids stay well-hydrated 2. Return emergency room if worsening symptoms. Referrals: Patient,NotPresent [Unknown] - As per Instructions
[2018-10-09] MEDS ORDERED: NS 1,000 ML IV ONE (23:47)
[2018-10-09 23:57] LABS: PLATELET COUNT 258 10^3/uL (150-400)
[2018-10-10 06:44] VITALS: BP 107/71
== END 2018-10-10 06:29 | disposition home or self-care (01) ==
LOC: EDUNIT# → EDBD
DX: R55 Syncope and collapse (principal); R40.0 Somnolence
CPT/HCPCS: G0480

== ENCOUNTER → 2018-10-26 | Outpatient (CLI) | payer MEDICAID ==
[~2018-10-26] MED LIST: IOHEXOL 350mgI/ML (OMNIPAQUE) 150 ML BTL IV ONE
== END ==
LOC: EEVIPCON 10-15 11:00 → FIMAGING 15:32
PROVIDERS: ATTEND Family Medicine
DX: R10.31 Right lower quadrant pain (principal); N83.201 Unspecified ovarian cyst, right side; N83.202 Unspecified ovarian cyst, left side; Z85.42 Personal history of malignant neoplasm of other parts of uterus
CPT/HCPCS: Q9967

== ENCOUNTER 2018-11-02 13:43 | Emergency (ER) | payer MEDICAID ==
[2018-11-02 13:52] VITALS: BP 123/72
--- NOTE | 2018-11-02 14:08 | EDPHY ---
H & P Stated Complaint: tooth pain Time Seen by Provider: 11/02/18 14:02 - Personal History LMP (Females 10-55): IUD In Place Current Tetanus Diphtheria and Acellular Pertussis (TDAP): Yes Tetanus Vaccine Date: 2010 - Medical/Surgical History Hx Asthma: No Hx Chronic Respiratory Disease: No Hx Diabetes: No Hx Cardiac Disease: No Hx Renal Disease: No Hx Cirrhosis: No Hx Alcoholism: No Hx HIV/AIDS: No Hx Splenectomy or Spleen Trauma: No Other PMH: PMHx: RRMS, endometriosis, migraines, TBIs. PTSD/anxiety, night terrors, ovarian cyst. PSHx: 2 laproscopies for endometriosis, ovarian cyst removal (R) - Social History Smoking Status: Current every day smoker Constitutional: Initial Vital Signs Temperature (C) 36.9 C 11/02/18 13:49 Heart Rate 83 11/02/18 13:49 Respiratory Rate 16 11/02/18 13:49 Blood Pressure 123/72 H 11/02/18 13:49 O2 Sat (%) 98 11/02/18 13:49 O2 Delivery Mode Room Air Allergies/Adverse Reactions: amitriptyline [Amitriptyline] Allergy (Unknown, Verified 11/02/18 13:45) amoxicillin [Amoxicillin] Allergy (Unknown, Verified 11/02/18 13:45) glatiramer (copolymer 1) [From Copaxone] Allergy (Verified 11/02/18 13:45) ibuprofen Allergy (Verified 11/02/18 13:45) metoclopramide HCl [From Reglan] Allergy (Verified 11/02/18 13:45) Home Medications: Medication Instructions Recorded traMADol [Ultram 50 mg (*)] 1 - 2 tab PO Q8 PRN #24 tab 05/06/14 Rizatriptan Benzoate [Maxalt] 07/19/14 Neurontin 08/01/16 Zofran 08/01/16 predniSONE 60 mg PO DAILY 5 Days tab 11/17/16 Botox 03/04/17 Topamax 03/04/17 Promethazine HCl 25 mg PO BID #10 tablet 07/03/17 Cephalexin [Keflex (RX)] 500 mg PO TID #30 cap 11/02/18 Fluconazole [Diflucan (*)] 150 mg PO ONCE #3 tab 11/02/18 Hydrocodone/APAP 5/325 [[place] 1 - 2 each PO Q4-6PRN PRN #20 tab 11/02/18 5/325] Temazepam 11/02/18 Medical Decision Making ED Course/Re-evaluation: CHIEF COMPLAINT: Tooth pain HISTORY OF PRESENT ILLNESS: The patient is a 38 y/o female complaining of persistent left upper tooth pain that worsened acutely 1.5 weeks ago. She was brushing her teeth after eating and when removing a piece of food between her left upper molar a piece of tooth broke. She's had pain at this site since then. Two week prior to this incident she saw a dentist and was referred to an oral surgeon for a partial implant. This appointment is scheduled for November 11 and she has been unsuccessful trying to move up the date. She went to see her PCP and dentist today due to this pain requesting antibiotics and pain medication if possible, but she was told they could not prescribe anything until she sees the oral surgeon, 9 days from now. No fever or other acute complaints. REVIEW OF SYSTEMS: A 10 point review of systems was performed and is negative with the exception of the elements mentioned in the history of present illness. PHYSICAL EXAM: HR, BP, O2 Sat, RR. Temp noted General Appearance: Alert, well hydrated, appropriate, and non-toxic appearing. Head: Atraumatic without scalp tenderness or obvious injury Eyes: Pupils equal, round, reactive to light and accommodation, EOMI, no trauma , no injection. Ears: Clear bilaterally, no perforation, normal landmarks Nose: Atraumatic, no rhinorrhea, clear. Throat: There is no erythema or exudates, no lesions, normal tonsils, mucus membranes moist. Gingival inflammation. 1st and 2nd upper left molar are fractured. Neck: Supple, non-tender, no lymphadenopathy. Respiratory: No distress. Cardiovascular: Good capillary refill all extremities. Musculoskeletal: Normal active ROM of all extremities, atraumatic. Neurological: Alert, appropriate, and interactive. Nonfocal. Skin: No rashes, good turgor, no nodules on palpation. PAST MEDICAL HISTORY: Endometriosis, migraines, TBI, PTSD, anxiety, ovarian cysts PAST SURGICAL HISTORY: 2 laparoscopies for endometriosis, ovarian cyst removal ( R) SOCIAL HISTORY: Lives in [place]. Daily smoker. PCP: Dr. Cazares. DIFFERENTIAL DIAGNOSIS: The differential diagnosis for the patient's symptoms included but was not limited to dental fracture, gingivitis, dental infection, dental abscess. MEDICAL DECISION MAKING: This is a pleasant 38 y/o female who presents with a 1.5-week history of left upper dental pain secondary to a tooth fracture and existing gingival disease. Plan for treatment with [place] and Keflex. She is scheduled to see the oral surgeon for follow up in 9 days. Standard care and return precautions discussed. She is agreeable to this plan. Departure - Departure Disposition: Home, Routine, Self-Care Clinical Impression: Tooth infection Condition: Good Instructions: Toothache (ED) Additional Instructions: 1. Take Keflex as prescribed. Be sure to complete the entire prescription even if symptoms resolve. 2. Use [place] as prescribed as needed for severe pain. This medication can make you drowsy and constipated. Do not use prior to driving. 3. Use 600mg ibuprofen every 8 hours for pain and inflammation over the next few days. 4. Follow up with your oral surgeon as planned. 5. Return for worsening of condition. Referrals: Ni Cazares MD [Primary Care Provider] - As per Instructions Prescriptions: Cephalexin [Keflex (RX)] 500 mg PO TID #30 cap Fluconazole [Diflucan (*)] 150 mg PO ONCE #3 tab Hydrocodone/APAP 5/325 [[place] 5/325] 1 - 2 each PO Q4-6PRN PRN #20 tab PRN Reason: Pain, Moderate Report Scribed for: Mitchell Moreno Report Scribed by: Janice Rodriguez Date of Report: 11/02/18 Time of Report: 14:12
== END 2018-11-02 14:28 | disposition home or self-care (01) ==
DX: K04.7 Periapical abscess without sinus (principal); F17.200 Nicotine dependence, unspecified, uncomplicated; Z87.820 Personal history of traumatic brain injury

== ENCOUNTER 2018-11-08 14:14 | Emergency (ER) | payer MEDICAID | END 2018-11-08 15:26 | disposition home or self-care (01) ==

== ENCOUNTER → 2019-02-11 | Outpatient (CLI) | payer MEDICAID | LOC: FIMAGING 14:44 ==

== ENCOUNTER → 2019-02-19 | Outpatient (CLI) | payer MEDICAID | LOC: FIMAGING 11:00 ==